=== PATIENT | female | born 1975 | race Asian ===

== ENCOUNTER → 2017-11-15 | Outpatient (CLI) | payer BC ==
[2017-11-15 18:50] LABS: Free Thyroxine 1.39 ng/dL (0.70-1.60)
[2017-11-15 18:54] LABS: Thyroid Stimulating Hormone 1.41 uIU/mL (0.360-4.800); Triiodothyronine, Free 3.26 pg/mL (2.18-3.98)
== END ==
LOC: LAB 16:02 → LAB SHORT 16:02
PROVIDERS: Hospitalist
DX: E04.9 Nontoxic goiter, unspecified (principal)
CPT/HCPCS: 84439; 84443; 84481

== ENCOUNTER 2018-01-21 09:09 | Day surgery (SDC) | payer BC ==
[2018-01-21 10:39] LABS: Performing Lab VERACYTE; Test Name FNA
[2018-01-25 11:11] LABS: Result SEE PATHOTH RESULTS
== END 2018-01-21 22:51 | disposition home or self-care (01) ==
LOC: US 09:09
PROVIDERS: Hospitalist
PROC: 0G9H3ZX Drainage of Right Thyroid Gland Lobe, Percutaneous Approach, Diagnostic (ICD-10-PCS; principal; 2018-01-21)
DX: E04.1 Nontoxic single thyroid nodule (principal)
CPT/HCPCS: 10022; 76942

== ENCOUNTER → 2019-09-11 | Outpatient (CLI) | payer BC | END | disposition home or self-care (01) | LOC: LAB SHORT 14:27 → LAB 14:27 | DX: N39.0 Urinary tract infection, site not specified (principal) | CPT/HCPCS: 87077; 87086; 87186 ==

== ENCOUNTER → 2020-04-07 | Outpatient (CLI) | payer BC | END | disposition home or self-care (01) | LOC: LAB SHORT 17:10 → LAB 17:10 → LAB FUT 04-07 15:20 | DX: N30.00 Acute cystitis without hematuria (principal) | CPT/HCPCS: 87086 ==

== ENCOUNTER → 2020-06-17 | Outpatient (CLI) | payer BC ==
[2020-06-19 08:52] LABS: HPV 16 Negative (Negative); HPV 18 Negative (Negative); HPV OTHER HR TYPES Negative (Negative)
== END | disposition home or self-care (01) ==
LOC: LAB 11:43 → LAB SHORT 11:43
PROVIDERS: Obstetrics & Gynecology
DX: Z01.419 Encounter for gynecological examination (general) (routine) without abnormal findings (principal)
CPT/HCPCS: 87624; G0123

== ENCOUNTER → 2021-02-19 | Outpatient (CLI) | payer BC | END | disposition home or self-care (01) | LOC: LAB SHORT 08:20 → LAB 08:20 | DX: R30.0 Dysuria (principal) | CPT/HCPCS: 87077; 87086; 87186 ==

== ENCOUNTER → 2024-05-12 | Outpatient (CLI) | payer BC ==
[2024-05-21 08:46] LABS: HPV HIGH RISK BY TMA Not Detected; HPV SOURCE Cerv/Endocerv
== END | disposition home or self-care (01) ==
LOC: LAB SHORT 10:36 → LAB 10:36
PROVIDERS: Obstetrics & Gynecology
DX: Z01.419 Encounter for gynecological examination (general) (routine) without abnormal findings (principal)
CPT/HCPCS: 87624; G0123

== ENCOUNTER → 2024-06-08 | Outpatient (CLI) | payer BC ==
[2024-06-08 08:31] LABS: Anion Gap 8 mmol/L (3-11); Blood Urea Nitrogen 18 mg/dL (8-24); Bun/Creatinine Ratio 20.4 (12.0-20.0); CHOL/HDL RATIO 3.4; CO2, Blood 28 mmol/L (21-32); Calcium, Blood 9.4 mg/dL (8.5-10.1); Chloride, Blood 108 mmol/L (98-108); Cholesterol 229 mg/dL (50-200); Creatinine, Blood 0.88 mg/dL (0.40-1.00); Glomerular Filtration Rate 81 (60-); Glucose, Blood 98 mg/dL (70-99); HDL Cholesterol 67 mg/dL (>39); LDL/HDL RATIO 1.9; Low Density Lipoprotein Chol 130 mg/dL (0-110); Potassium, Blood 3.6 mmol/L (3.5-5.5); Sodium, Blood 140 mmol/L (136-145); Triglycerides 161 mg/dL (30-160); Very Low Density Lipoprot Chol 32 mg/dL (6-32)
== END ==
LOC: LAB 06:57 → LAB SHORT 06:57
PROVIDERS: Hospitalist
DX: I10 Essential (primary) hypertension (principal); R53.83 Other fatigue
CPT/HCPCS: 80048; 80061; 84443

== ENCOUNTER 2024-10-27 07:29 | Day surgery (SDC) | payer BC ==
[~2024-10-27] VITALS: Ht 152.4 cm; Wt 52.8 kg
[~2024-10-27 07:29] MED LIST: ATEN25 PO
[2024-10-27] MEDS ORDERED: propofoL 50 ML IV ONE (07:38)
[2024-10-27] MEDS ORDERED: Lactated Ringer's 1,000 ML IV ONE ×2 (07:38→08:07)
[2024-10-27 09:45] VITALS: BP 101/67
== END 2024-10-27 09:40 | disposition home or self-care (01) ==
LOC: ORSCSDS 07:29
PROVIDERS: Surgery
PROC: 0DBK8ZX Excision of Ascending Colon, Via Natural or Artificial Opening Endoscopic, Diagnostic (ICD-10-PCS; principal; 2024-10-27 08:45)
PROC: 0DBM8ZX Excision of Descending Colon, Via Natural or Artificial Opening Endoscopic, Diagnostic (ICD-10-PCS; principal; 2024-10-27 08:45)
DX: Z12.11 Encounter for screening for malignant neoplasm of colon (principal); D12.2 Benign neoplasm of ascending colon; K63.5 Polyp of colon; K64.8 Other hemorrhoids; I10 Essential (primary) hypertension; Z79.899 Other long term (current) drug therapy
CPT/HCPCS: 88305; J2704; J7120